=== PATIENT | male | born 1985 | race Caucasian/White ===

== ENCOUNTER 2017-07-30 16:34 | Emergency (ER) | payer OTHER ==
[2017-07-30 16:40] VITALS: BP 137/76; PULSE 118; TEMP 98.6; BMI 30.8
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
[2017-07-30] MEDS ORDERED: IBUPROFEN 600 MG TABLET (FP) PO ONE ×2 (18:00)
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
== END 2017-07-30 18:20 | disposition home or self-care (01) ==
LOC: JERFT 16:34
DX: S00.83XA Contusion of other part of head, initial encounter (principal); S00.432A Contusion of left ear, initial encounter; Y35.811A Legal intervention involving manhandling, law enforcement official injured, initial encounter; Y93.89 Activity, other specified; Y92.89 Other specified places as the place of occurrence of the external cause; Y99.0 Civilian activity done for income or pay
CPT/HCPCS: 99281-25

== ENCOUNTER 2017-11-28 06:05 | Emergency (ER) | payer OTHER ==
[2017-11-28 06:16] VITALS: BP 146/100; PULSE 83; TEMP 98.3; BMI 29.2
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
[2017-11-28] MEDS ORDERED: ALBUTEROL SO4 2.5/IPRATROPIUM 0.5 INH SOL 3 ML VIAL.NEB. NEB ONE ×2 (08:51)
== END 2017-11-28 09:54 | disposition home or self-care (01) ==
LOC: FER 06:05
PROC: 3E0F7GC Introduction of Other Therapeutic Substance into Respiratory Tract, Via Natural or Artificial Opening (ICD-10-PCS; principal; 2017-11-28)
DX: Z77.118 Contact with and (suspected) exposure to other environmental pollution (principal); Y35.891A Legal intervention involving other specified means, law enforcement official injured, initial encounter; Y93.89 Activity, other specified; Y92.89 Other specified places as the place of occurrence of the external cause; Y99.0 Civilian activity done for income or pay
CPT/HCPCS: 82375; 99283-25; J7620